=== PATIENT | male | born 1960 | race Caucasian/White ===

== ENCOUNTER 2021-04-15 06:46 | Emergency (ER) | payer OTHER ==
[~2021-04-15] VITALS: Ht 190.5 cm; Wt 138.3 kg
[~2021-04-15 06:46] MED LIST: ASPIRIN325 PO; CITRATE OF MAG296 ML PO; COLACE 100 MG100 MG; COLACE100 MG PO; COUMADIN 10MG T10 M1 PO; CYCLOBENZAPRINE; DEPO-TESTO200 MG/1 M IM; DIOVAN HCT 3201 EAC1 PO; DIOVAN PO; DOXYCYCLINE 10100 M1 PO; FLEXERIL PO; HYDROCODON-ACE1 EAC7 PO; HYDROCODONE-AP1 EA11 PO; HYDROCODONE-AP1 EA15 PO; LIDODERM TP; MEDROLDOSEPACK PO; NAPROSYN500 MG PO; NORCO 5-325 TA1 EACH; OXYIR 5 MG CAPSU5 M1; PERCOCET 5-3251 EACH PO; XARELTO10 M1; ZOFRAN4 MG PO
[2021-04-15] MEDS ORDERED: HYDROCODON-ACE1 EA14 PO (06:55)
[2021-04-15] MEDS ORDERED: CIALIS2.5 MG PO (06:55)
[2021-04-15 07:24] LABS: ABSOLUTE BASOPHILS 0.1 thou/uL (0.0-0.2); ABSOLUTE EOSINOPHILS 0.1 thou/uL (0.0-0.7); ABSOLUTE LYMPHOCYTES 1.9 thou/uL (0.8-5.3); ABSOLUTE MONOCYTES 0.7 thou/uL (0.0-1.2); ABSOLUTE NEUTROPHILS 3.9 thou/uL (1.6-8.1); BASOPHILS 1.4 %; EOSINOPHILS 1.9 %; HEMATOCRIT 49.1 % (42.0-52.0); HEMOGLOBIN 17.5 gm/dL (14.0-18.0); LYMPHOCYTES 28.6 %; MCH 31.2 pg (26.0-34.0); MCHC 35.7 g/dL (28.0-37.0); MCV 87.6 fL (80.0-100.0); MONOCYTES 9.8 %; MPV 7.6 fl. (7.2-11.1); NUCLEATED RBCS 0 /100WBC; PLATELET COUNT* 157 thou/uL (150-400); POLYS 58.3 %; RDW-CV 13.6 % (10.5-14.5); WBC 6.7 thou/uL (4.0-11.0)
[2021-04-15 07:35] LABS: CALCIUM 8.3 mg/dL (8.5-10.1); POTASSIUM 4.1 mmol/L (3.5-5.1)
[2021-04-15 07:44] LABS: ALBUMIN 3.8 g/dL (3.4-5.0); TOTAL BILIRUBIN 0.8 mg/dL (<0.1-1.0); TOTAL PROTEIN 7.3 g/dL (6.4-8.2)
[2021-04-15] MEDS ORDERED: MECLIZINE HCL25 M1 PO (08:29)
--- NOTE | 2021-04-15 09:54 | EKG ---
[place] [address] ELECTROCARDIOGRAM REPORT Name: TRUE PONCE JR Room: [facility]#: [id number] Admission: 04/15/21 Attend Phys: Discharge: Date of : 64 Date of Service: 04/15/21 0655 Report #: [id number] THIS REPORT FOR: //name// [facility] ED Test Date: 2021-04-15 Test Time: 06:55:26 Pat Name: TRUE PONCE Department: Room: Gender: Kiln Puller: [place] : 1960 Requested By: Carmelo Kwan Order Number: [id number] MD: Braxton Hamm Measurements Intervals [place] Rate: 72 P: 28 AR: 166 QRS: -4 QRSD: 89 T: 29 QT: 376 QTc: 412 Interpretive Statements Sinus rhythm Minimal ST elevation, anterior leads Baseline wander in lead(s) V3,V5 Compared to ECG 01/01/2016 12:23:17 ST (T wave) deviation now present Electronically Signed On 04-15-2021 9:54:39 CDT by Braxton Hamm [email or web address] <ELECTRONICALLY SIGNED> By: Braxton Hamm MD, FACC 04/15/21 0954 [phone] Braxton Hamm MD, [facility] /EPI
[2021-04-15 10:06] VITALS: BP 142/72
== END 2021-04-15 10:09 | disposition home or self-care (01) ==
LOC: M.ERS 06:46
PROVIDERS: Emergency Medicine Emergency Medical Services
DX: H81.11 Benign paroxysmal vertigo, right ear (principal); I10 Essential (primary) hypertension; Z90.49 Acquired absence of other specified parts of digestive tract; Z88.0 Allergy status to penicillin; Z88.2 Allergy status to sulfonamides

== ENCOUNTER 2021-05-20 08:53 | Emergency (ER) | payer OTHER ==
[~2021-05-20] VITALS: Ht 190.5 cm; Wt 138.3 kg
[~2021-05-20 08:53] MED LIST changes: +CIALIS2.5 MG PO; +HYDROCODON-ACE1 EA14 PO; +MECLIZINE HCL25 M1 PO
[2021-05-20 10:00] VITALS: BP 181/98
== END 2021-05-20 11:34 | disposition left against medical advice (07) ==
LOC: M.ERS 08:53
DX: R06.02 Shortness of breath (principal); Z53.21 Procedure and treatment not carried out due to patient leaving prior to being seen by health care provider

== ENCOUNTER 2021-07-14 12:23 | Emergency (ER) | payer OTHER ==
[~2021-07-14] VITALS: Ht 190.5 cm; Wt 136.1 kg
[2021-07-14] MEDS ORDERED: CIALIS5 MG PO (12:39)
[2021-07-14] MEDS ORDERED: COZAAR 25 MG TA25 M1 PO (12:39)
[2021-07-14] MEDS ORDERED: ASA81BEC PO (12:40)
[2021-07-14 13:43] LABS: URINE BILIRUBIN NEGATIVE (Negative); URINE BLOOD 2+ (Negative); URINE CLARITY CLEAR; URINE COLOR YELLOW; URINE GLUCOSE-RANDOM NEGATIVE (Negative); URINE KETONES NEGATIVE (Negative); URINE LEUKOCYTES-REFLEX NEGATIVE (Negative); URINE NITRITE-REFLEX NEGATIVE (Negative); URINE PROTEIN NEGATIVE (Negative); URINE SPECIFIC GRAVITY <= 1.005 (1.005-1.030); URINE UROBILINOGEN 0.2 E.U./dl (0.2-1.0)
--- NOTE | 2021-07-14 13:46 | EKG ---
[place] [address] ELECTROCARDIOGRAM REPORT Name: TRUE PONCE JR Room: [facility].#: [id number] Admission: Attend Phys: Discharge: Date of : 64 Date of Service: 07/14/21 1332 Report #: [id number] THIS REPORT FOR: //name// [facility] ED Test Date: 2021-07-14 Test Time: 13:32:35 Pat Name: TRUE [place] Department: Room: Gender: Skip Pitman: [facility] : 1960 Requested By: Josy Elizabeth Order Number: [id number] MD: Albin George Measurements Intervals [place] Rate: 84 P: 36 MD: 158 QRS: -12 QRSD: 86 T: 40 QT: 353 QTc: 418 Interpretive Statements Sinus rhythm Minimal ST elevation, anterolateral leads Baseline wander in lead(s) V1,V3 Compared to ECG 04/15/2021 06:55:26 No significant changes Electronically Signed On 07-14-2021 13:46:20 CDT by Albin George [email or web address] <ELECTRONICALLY SIGNED> By: Albin George MD, FAC 07/14/21 1346 133 133 Albin George MD, [facility] /EPI
[2021-07-14 13:50] LABS: BACTERIA-REFLEX None Seen /HPF (None Seen); CASTS None Seen /LPF (None Seen); CRYSTALS None Seen /LPF (None Seen); MUCUS None Seen strn/LPF (None Seen); SQUAMOUS NONE SEEN /LPF (0-3); URINE RBC 3-10 Few /HPF (0-2); URINE WBC-REFLEX None Seen /HPF (0-5)
[2021-07-14 13:54] LABS: CALCIUM 8.8 mg/dL (8.5-10.1); CREATININE 1.2 mg/dL (0.6-1.3); POTASSIUM 3.8 mmol/L (3.5-5.1)
[2021-07-14 13:55] LABS: AMP/METHAMP Negative (Negative); BARBITURATES Negative (Negative); BENZODIAZEPINES Negative (Negative); COCAINE Negative (Negative); METHADONE Negative (Negative); OPIATES Negative (Negative); PCP Negative (Negative); THC Negative (Negative)
[2021-07-14 13:58] LABS: ALBUMIN 3.9 g/dL (3.4-5.0); MAGNESIUM 1.9 mg/dL (1.8-2.4); TOTAL BILIRUBIN 0.7 mg/dL (<0.1-1.0); TOTAL PROTEIN 7.5 g/dL (6.4-8.2)
[2021-07-14 14:23] LABS: ABSOLUTE BASOPHILS 0.1 thou/uL (0.0-0.2); ABSOLUTE EOSINOPHILS 0.1 thou/uL (0.0-0.7); ABSOLUTE LYMPHOCYTES 1.5 thou/uL (0.8-5.3); ABSOLUTE MONOCYTES 0.8 thou/uL (0.0-1.2); ABSOLUTE NEUTROPHILS 5.7 thou/uL (1.6-8.1); BASOPHILS 0.8 %; EOSINOPHILS 1.2 %; HEMATOCRIT 54.2 % (42.0-52.0); HEMOGLOBIN 18.7 gm/dL (14.0-18.0); LYMPHOCYTES 18.6 %; MCH 29.8 pg (26.0-34.0); MCHC 34.6 g/dL (28.0-37.0); MONOCYTES 9.6 %; MPV 8.1 fl. (7.2-11.1); NUCLEATED RBCS 0 /100WBC; PLATELET COUNT* 168 thou/uL (150-400); POLYS 69.8 %; RDW-CV 13.1 % (10.5-14.5); WBC 8.2 thou/uL (4.0-11.0)
[2021-07-14] MEDS ORDERED: ATIVAN1 M1 PO (16:33)
[2021-07-14 16:57] VITALS: BP 124/74
== END 2021-07-14 16:58 | disposition home or self-care (01) ==
LOC: M.ERS 12:23
PROVIDERS: Nurse Practitioner Family
DX: R25.1 Tremor, unspecified (principal); I10 Essential (primary) hypertension; Z90.49 Acquired absence of other specified parts of digestive tract; Z79.899 Other long term (current) drug therapy; Z88.0 Allergy status to penicillin; Z88.2 Allergy status to sulfonamides; Z87.891 Personal history of nicotine dependence